=== PATIENT | female | born 1960 | race Caucasian/White ===

== ENCOUNTER → 2017-09-05 | Outpatient (CLI) | payer MEDICAID, OTHER | END | disposition home or self-care (01) | LOC: XYW 11:18 | PROVIDERS: ATTEND Internal Medicine Cardiovascular Disease | DX: I20.8 Other forms of angina pectoris (principal) | CPT/HCPCS: 93306 ==

== ENCOUNTER → 2017-10-02 | Outpatient (CLI) | payer MEDICAID, OTHER ==
[~2017-10-02] MED LIST: OPTISON 3ml Vial for INJ IV ONE
[2017-10-02 11:49] VITALS: BP 147/88
== END | disposition home or self-care (01) ==
LOC: XYW 10:27
PROVIDERS: ATTEND Internal Medicine Cardiovascular Disease
DX: I47.2 Ventricular tachycardia (principal); I49.3 Ventricular premature depolarization; I20.8 Other forms of angina pectoris; R07.89 Other chest pain
CPT/HCPCS: 93017; 93306; Q9956